=== PATIENT | female | born 1995 | race Caucasian/White ===

== ENCOUNTER 2017-04-09 14:15 | Emergency (ER) | payer OTHER ==
[~2017-04-09] VITALS: Ht 157.5 cm; Wt 60.3 kg
[2017-04-09 14:16] VITALS: BP 120/81
[2017-04-09] MEDS ORDERED: KETOROLAC 30 MG/1 ML ONE (14:51)
[2017-04-09] MEDS ORDERED: DEXAMETHASONE 4 MG TABLET ONE (14:51)
[2017-04-09] MEDS ORDERED: DEXAMETHASONE 4 MG TABLET PO ONE (15:00)
[2017-04-09] MEDS ORDERED: KETOROLAC 30 MG/1 ML IM ONE (15:00)
== END 2017-04-09 15:30 | disposition home or self-care (01) ==
LOC: ED 14:48
DX: J02.9 Acute pharyngitis, unspecified (principal)
CPT/HCPCS: 87081; 87880; 96372; 99284; J1885